=== PATIENT | male | born 1960 | race Two or more races ===

== ENCOUNTER → 2024-10-17 | Outpatient (CLI) | payer MEDICAID, SELFPAY ==
--- NOTE | 2024-10-17 15:30 | XR_ITS ---
Examination: CT chest, without intravenous contrast. Sagittal and coronal 2-D reconstructions. Exam date and time: October 17, 2024 1610 hours Comparison December 22, 2023 INDICATIONS: Coughing one week, pleural-based parenchymal disease in the posterior left hemithorax on CT chest December 22, 2023 CTDI:vol (mGy) 10.2 DLP: (mGycm) 404 Technique: Multiple 3.0 mm axial sections of the chest to been obtained. Bone and lung density settings are obtained. Sagittal and coronal 2-D reconstructions have been obtained. Low dose protocols were performed. One or more of the following dose reduction techniques were used; automated exposure control, adjustment of the mA and/or KV according to patient size, use of iterative reconstruction technique. Findings: No thoracic aortic aneurysmal dilatation Main pulmonary artery segment measures 35 mm No paratracheal tracheobronchial or bronchopulmonary adenopathy Stable pleural scarring in the posterior medial left hemithorax compared to December 22, 2023 No interval pneumonia or pulmonary edema or pulmonary mass lesion No focal liver or splenic lesion No gallstones No pancreatic or adrenal mass IMPRESSION: Stable pleural scarring in the posterior medial left hemithorax compared to December 22, 2023 No interval pneumonia or pulmonary edema
== END | disposition home or self-care (01) ==
LOC: CCTX 15:31
PROVIDERS: Referring Provider Internal Medicine; Visit Provider Internal Medicine
DX: R91.8 Other nonspecific abnormal finding of lung field (principal)
CPT/HCPCS: 71250

== ENCOUNTER → 2025-05-11 | Outpatient (BNVA) | payer MEDICAID, SELFPAY | END | disposition home or self-care (01) | PROVIDERS: PCP Nurse Practitioner Family; Referring Provider Nurse Practitioner Family; Visit Provider Urology | DX: N40.1 Benign prostatic hyperplasia with lower urinary tract symptoms (principal); N13.8 Other obstructive and reflux uropathy; Z86.718 Personal history of other venous thrombosis and embolism; Z86.711 Personal history of pulmonary embolism; N40.2 Nodular prostate without lower urinary tract symptoms; E66.9 Obesity, unspecified; Z68.28 Body mass index [BMI] 28.0-28.9, adult | CPT/HCPCS: 81003; 99212; G0463 ==